=== PATIENT | female | born 2005 | race Caucasian/White ===

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

== ENCOUNTER 2024-05-07 08:45 | Emergency (ER) | payer OTHER ==
[2024-05-07] MEDS: ONDANSETRON 4 MG/2 ML VIAL IVP STA (09:51)
[2024-05-07] MEDS: PANTOPRAZOLE 40 MG/10 ML VIAL IVP STA (09:52)
[2024-05-07] MEDS: SODIUM CHLORIDE 0.9% 1,000 ML IV STA ×2 (09:53→12:11)
--- NOTE | 2024-05-07 09:53 | ED ---
General Adult HPI - General Chief complaint: Nausea/Vomiting/Diarrhea Stated complaint: NVD Time Seen by Provider: 05/07/24 09:05 Source: patient, RN notes reviewed, old records reviewed Mode of arrival: ambulatory Limitations: no limitations - History of Present Illness Initial comments: Patient is a 18-year-old female who presents emergency department complaining of nausea and vomiting. Also has some epigastric abdominal discomfort. Began yesterday and has been having symptoms since. No significant history of marijuana abuse. Does have a history of mild asthma. No other acute complaints at this time. Denies fevers, chills, cough, urinary complaints. Denies any history of abdominal surgeries. Denies any significant shortness of breath or chest pain. States she will occasionally have chest discomfort when she is having active episodes of emesis and points towards the region just above her epigastric space. No other acute complaints at this time. No cardiac history. Relatively healthy otherwise. Presents for further evaluation. No known sick contacts. - Related Data Allergies Allergy/AdvReac Type Severity Reaction Status Date / Time ceftriaxone [From Rocephin] Allergy Rash/Hives Verified 05/07/24 11:27 dog dander Allergy Rash/Hives Verified 05/07/24 11:27 ragweed pollen Allergy Rash/Hives Verified 05/07/24 11:27 rice Allergy Swelling Verified 05/07/24 11:27 tree and shrub pollen Allergy Rash/Hives Verified 05/07/24 11:27 legumes AdvReac Vomiting Verified 05/07/24 11:27 lentils AdvReac Nausea & Verified 05/07/24 11:27 Vomiting triamcinolone [From Azmacort] AdvReac Rash/Hives Verified 05/07/24 11:27 dust Allergy Mild Rash/Hives Uncoded 05/07/24 08:50 Review of Systems ROS Statement: Those systems with pertinent positive or pertinent negative responses have been documented in the HPI. Review of Systems: CONST: Denies fever EYES: Denies blurry vision ENT: Denies nasal congestion C/V: Denies Chest pain RESP: Denies shortness of breath GI: Endorses epigastric abdominal pain, nausea, vomiting. : Denies dysuria SKIN: Denies rash. MSK: Denies joint pain. NEURO: Denies headache ROS Other: All systems not noted in ROS Statement are negative. Past Medical History Past Medical History: Asthma, Pneumonia Additional Past Medical History / Comment(s): chronic migraines, erbs palsy History of Any Multi-Drug Resistant Organisms: None Reported Past Surgical History: No Surgical Hx Reported Past Anesthesia/Blood Transfusion Reactions: No Reported Reaction Past Psychological History: No Psychological Hx Reported Smoking Status: Vaper Past Alcohol Use History: None Reported Past Drug Use History: None Reported - Past Family History Mother Family Medical History: Fibromyalgia Additional Family Medical History / Comment(s): scoliosis, degenerative spine disease, carpal tunnel General Exam - General Exam Comments Initial Comments: General: Appears in no acute distress. HEAD: Normal with no signs of head trauma. EYES: PERRLA, EOMI, conjunctiva normal, no discharge. ENT: Hearing grossly intact, normal oropharynx. Mildly dry mucous membranes. RESPIRATORY: Clear breath sounds bilaterally. No wheezes, rales, or rhonchi. C/V: Regular rate and rhythm. S1 and S2 auscultated, no edema, peripheral pulses 2+ and intact throughout ABD: Abdomen soft, nondistended. Mild tenderness to palpation in the epigastric region. No guarding or rebound tenderness. No peritoneal signs. EXT: no obvious deformity SKIN: No rashes or lesions observed on exposed skin. NEURO: Alert and oriented x 4. Limitations: no limitations Course Vital Signs 05/07/24 05/07/24 05/07/24 08:51 10:00 11:00 Temperature 97.4 F L Pulse Rate 80 59 L 64 Respiratory 18 16 16 Rate Blood Pressure 159/107 151/113 155/104 O2 Sat by Pulse 100 100 100 Oximetry 05/07/24 11:30 Temperature Pulse Rate 60 Respiratory 20 Rate Blood Pressure 153/94 O2 Sat by Pulse 100 Oximetry Medical Decision Making - Medical Decision Making Was pt. sent in by a medical professional or institution (, PA, WORKSHOP MANAGER, urgent care, hospital, or longterm...) When possible be specific @ -No Did you speak to anyone other than the patient for history (EMS, parent, family, police, friend...)? What history was obtained from this source @ -No Did you review nursing and triage notes (agree or disagree)? Why? @ -I reviewed and agree with nursing and triage notes Were old charts reviewed (outside hosp., previous admission, EMS record, old EKG, old radiological studies, urgent care reports/EKG's, longterm records)? Report findings @ -No old charts were reviewed Differential Diagnosis (chest pain, altered mental status, abdominal pain women, abdominal pain men, vaginal bleeding, weakness, fever, dyspnea, syncope, headache, dizziness, GI bleed, back pain, seizure, CVA, palpatations, mental health, musculoskeletal)? @ -Differential Abdominal Pain Women: Appendicitis, Cholecystitis, diverticulosis, ischemic bowel, pancreatitis, hepatitis, UTI, gastroenteritis, AAA, incarcerated hernia, bowel obstruction, constipation, inflammatory bowel, hepatitis, peptic ulcer disease, splenic infarction, perforated viscus, vulvitis, ovarian torsion, PID, kidney stone, placenta abruption, this is not meant to be an all-inclusive list EKG interpreted by me (3pts min.). @ -As above X-rays interpreted by me (1pt min.). @ -Chest x-ray reveals no obvious acute cardiopulmonary process. CT interpreted by me (1pt min.). @ -CT abdomen pelvis reveals no obvious acute intra-abdominal process. U/S interpreted by me (1pt. min.). @ -Gallbladder ultrasound shows no obvious acute process. What testing was considered but not performed or refused? (CT, X-rays, U/S, labs)? Why? @ -None What meds were considered but not given or refused? Why? @ -None Did you discuss the management of the patient with other professionals (professionals i.e. , PA, WORKSHOP MANAGER, lab, RT, psych nurse, social insurance administrator, medication administration professional, teacher, flight communications officer, major case detective)? Give summary @ -No Was smoking cessation discussed for >3mins.? @ -No Was critical care preformed (if so, how long)? @ -No Were there social determinants of health that impacted care today? How? (Homelessness, low income, unemployed, alcoholism, drug addiction, transportation, low edu. Level, literacy, decrease access to med. care, intermediate, rehab)? @ -No Was there de-escalation of care discussed even if they declined (Discuss DNR or withdrawal of care, Hospice)? DNR status @ -No What co-morbidities impacted this encounter? (DM, HTN, Smoking, COPD, CAD, Cancer, CVA, ARF, Chemo, Hep., AIDS, mental health diagnosis, sleep apnea, morbid obesity)? @ -None Was patient admitted / discharged? Hospital course, mention meds given and route , prescriptions, significant lab abnormalities, going to OR and other pertinent info. @ -Patient presents with nausea and vomiting with epigastric abdominal pain and occasional chest discomfort for 1 day. This does seem to be most likely an abdominal process but we will obtain screening EKG as well as chest x-ray. We will obtain basic abdominal labs. Patient be symptomatically treated with IV Toradol, Zofran, Protonix, fluids. Patient was in agreement this plan. Vital signs currently within acceptable limits. Patient's laboratory studies remarkable for dehydration as evidenced by slight lactic acidosis of 2.4. Patient did not leave a urine sample. Patient appears to have pancreatitis based on elevated lipase of 1998. Remainder the workup unremarkable. Imaging unremarkable. At this time patient would like to go home if she is feeling improved. I did recommend CT imaging and she was in agreement this plan. CT imaging showed no obvious acute intra-abdominal process. I updated the patient. I did offer observation admission due to the degree of lipase elevation however patient states she is feeling improved, is not from the area and would like to go home and return to an ER if she is feeling worse. She is tolerating oral intake. I do believe this is reasonable. Strict return precautions discussed. She is given a starter pack of Zofran for home. I instructed the patient to follow up with their PCP in the next 1-3 days. I provided contact information for follow up with gastroenterology. I explained that the patient should return to the emergency department if they experience any worsening symptoms. Strict return precautions were discussed with the patient. The patient expressed understanding of these instructions. I answered all questions that the patient had. The patient was discharged home in fair condition with their prescriptions and follow up information. Undiagnosed new problem with uncertain prognosis? @ -No Drug Therapy requiring intensive monitoring for toxicity (Heparin, Nitro, Insulin, Cardizem)? @ -No Were any procedures done? @ -No Diagnosis/symptom? @ -Pancreatitis, nausea and vomiting Acute, or Chronic, or Acute on Chronic? @ -Acute Uncomplicated (without systemic symptoms) or Complicated (systemic symptoms)? @ -Complicated Side effects of treatment? @ -None Exacerbation, Progression, or Severe Exacerbation] @ -No Poses a threat to life or bodily function? @ -Unlikely at this time - Lab Data Result diagrams: 05/07/24 09:20 05/07/24 09:20 Lab Results 05/07/24 05/07/24 05/07/24 Range/Units 09:20 09:20 09:20 WBC 7.1 (4.0-11.0) k/uL RBC 4.76 (3.80-5.40) m/uL Hgb 14.2 (11.4-16.0) gm/dL Hct 41.7 (34.0-46.0) % MCV 87.6 (80.0-100.0) fL MCH 29.9 (25.0-35.0) pg MCHC 34.1 (31.0-37.0) g/dL RDW 11.5 (11.5-15.5) % Plt Count 423 (150-450) k/uL MPV 6.6 Neutrophils % 73 % Lymphocytes % 16 % Monocytes % 5 % Eosinophils % 5 % Basophils % 0 % Neutrophils # 5.2 (1.3-7.7) k/uL Lymphocytes # 1.2 (1.0-4.8) k/uL Monocytes # 0.3 (0-1.0) k/uL Eosinophils # 0.3 (0-0.7) k/uL Basophils # 0.0 (0-0.2) k/uL PT 11.4 (10.0-12.5) sec INR 1.0 (<1.2) APTT 24.1 (22.0-30.0) sec Sodium 138 (137-145) mmol/L Potassium 3.9 (3.5-5.1) mmol/L Chloride 108 H (98-107) mmol/L Carbon Dioxide 17 L (22-30) mmol/L Anion Gap 13 mmol/L BUN 10 (7-17) mg/dL Creatinine 0.65 (0.52-1.04) mg/dL Est GFR (CKD-EPI)AfAm >90 (>60 ml/min/1.73 sqM) Est GFR (CKD-EPI)NonAf >90 (>60 ml/min/1.73 sqM) Glucose 116 H (74-99) mg/dL Lactic Ac Sepsis Rflx Plasma Lactic Acid Donald (0.7-2.0) mmol/L Calcium 9.6 (8.4-10.2) mg/dL Total Bilirubin 1.2 (0.2-1.3) mg/dL AST 22 (14-36) U/L ALT 14 (4-34) U/L Alkaline Phosphatase 62 (38-126) U/L Total Protein 8.1 (6.3-8.2) g/dL Albumin 4.6 (3.5-5.0) g/dL Amylase 153 H (30-110) U/L Lipase 1998 H (23-300) U/L HCG, Qual Not Detected Influenza Type A (PCR) (Not Detectd) Influenza Type B (PCR) (Not Detectd) RSV (PCR) (Not Detectd) SARS-CoV-2 (PCR) (Not Detectd) 05/07/24 05/07/24 05/07/24 Range/Units 09:20 09:20 10:51 WBC (4.0-11.0) k/uL RBC (3.80-5.40) m/uL Hgb (11.4-16.0) gm/dL Hct (34.0-46.0) % MCV (80.0-100.0) fL MCH (25.0-35.0) pg MCHC (31.0-37.0) g/dL RDW (11.5-15.5) % Plt Count (150-450) k/uL MPV Neutrophils % % Lymphocytes % % Monocytes % % Eosinophils % % Basophils % % Neutrophils # (1.3-7.7) k/uL Lymphocytes # (1.0-4.8) k/uL Monocytes # (0-1.0) k/uL Eosinophils # (0-0.7) k/uL Basophils # (0-0.2) k/uL PT (10.0-12.5) sec INR (<1.2) APTT (22.0-30.0) sec Sodium (137-145) mmol/L Potassium (3.5-5.1) mmol/L Chloride (98-107) mmol/L Carbon Dioxide (22-30) mmol/L Anion Gap mmol/L BUN (7-17) mg/dL Creatinine (0.52-1.04) mg/dL Est GFR (CKD-EPI)AfAm (>60 ml/min/1.73 sqM) Est GFR (CKD-EPI)NonAf (>60 ml/min/1.73 sqM) Glucose (74-99) mg/dL Lactic Ac Sepsis Rflx Y Plasma Lactic Acid Donald 2.4 H* (0.7-2.0) mmol/L Calcium (8.4-10.2) mg/dL Total Bilirubin (0.2-1.3) mg/dL AST (14-36) U/L ALT (4-34) U/L Alkaline Phosphatase (38-126) U/L Total Protein (6.3-8.2) g/dL Albumin (3.5-5.0) g/dL Amylase (30-110) U/L Lipase (23-300) U/L HCG, Qual Influenza Type A (PCR) Not Detected (Not Detectd) Influenza Type B (PCR) Not Detected (Not Detectd) RSV (PCR) Not Detected (Not Detectd) SARS-CoV-2 (PCR) Not Detected (Not Detectd) - EKG Data -: EKG Interpreted by Me EKG Comments: 12-lead Electrocardiogram Interpretation Note EKG was reviewed and interpreted by myself. 12-lead ECG performed at 0946 is interpreted by me as revealing normal sinus rhythm at a rate of 66 beats per minute. [place] is normal. NH interval is 131 ms, QRS durations 81 ms, QTc is 402 ms.. There were no ST or T wave abnormalities to suggest myocardial ischemia or injury. R wave progression across the precordium was satisfactory. By my interpretation this EKG is non-diagnostic for acute ischemia. Disposition Clinical Impression: Pancreatitis Disposition: HOME SELF-CARE Condition: Fair Instructions (If sedation given, give patient instructions): Pancreatitis (ED), Acute Nausea and Vomiting (ED) Additional Instructions: You have pancreatitis of unknown origin. Stick to a clear liquid diet. Use antiemetics as needed. Follow-up with your PCP or return to an ER if symptoms persist or worsen. Is patient prescribed a controlled substance at d/c from ED?: No Referrals: Juanito Peterson MD [Primary Care Provider] - 1-2 days Keren Cleveland MD [STAFF PHYSICIAN] - 1-2 days Time of Disposition: 12:51
[2024-05-07] MEDS: KETOROLAC 15 MG/ML 1 ML VIAL IVP STA (09:55)
[2024-05-07 10:12] LABS: Basophils % (A) 0 %; Eosinophils # (A) 0.3 k/uL (0-0.7); Eosinophils % (A) 5 %; HCT 41.7 % (34.0-46.0); HGB 14.2 gm/dL (11.4-16.0); Lymphocytes # (A) 1.2 k/uL (1.0-4.8); Lymphocytes % (A) 16 %; MCH 29.9 pg (25.0-35.0); MCHC 34.1 g/dL (31.0-37.0); MCV 87.6 fL (80.0-100.0); Mean Platelet Volume 6.6; Monocytes # (A) 0.3 k/uL (0-1.0); Monocytes % (A) 5 %; Neutrophils # (A) 5.2 k/uL (1.3-7.7); Neutrophils % (A) 73 %; Platelet Count 423 k/uL (150-450); RBC 4.76 m/uL (3.80-5.40); RDW 11.5 % (11.5-15.5); WBC 7.1 k/uL (4.0-11.0)
[2024-05-07 10:21] LABS: ALT 14 U/L (4-34); AST 22 U/L (14-36); African American GFR (CKD) >90 (>60 ml/min/1.73 sqM); Albumin 4.6 g/dL (3.5-5.0); Alkaline Phosphatase 62 U/L (38-126); Amylase 153 U/L (30-110); Anion Gap 13 mmol/L; Blood Urea Nitrogen 10 mg/dL (7-17); Calcium 9.6 mg/dL (8.4-10.2); Carbon Dioxide 17 mmol/L (22-30); Chloride 108 mmol/L (98-107); Glucose 116 mg/dL (74-99); Non-African American GFR(CKD) >90 (>60 ml/min/1.73 sqM); Potassium 3.9 mmol/L (3.5-5.1); Sodium 138 mmol/L (137-145); Total Bilirubin 1.2 mg/dL (0.2-1.3); Total Protein 8.1 g/dL (6.3-8.2)
[2024-05-07 10:23] LABS: HCG,Qualitative Serum Not Detected
[2024-05-07 10:35] LABS: Partial Thromboplastin Time 24.1 sec (22.0-30.0); Prothrombin Time 11.4 sec (10.0-12.5)
[2024-05-07] MEDS: diphenhydrAMINE 50 MG/ML 1 ML VIAL IVP STA (10:44)
[2024-05-07] MEDS: HALOPERIDOL LACTATE 5 MG/ML 1 ML VIAL IVP STA (10:45)
[2024-05-07 10:48] LABS: Lipase 1998 U/L (23-300)
--- NOTE | 2024-05-07 10:56 | US ---
EXAMINATION TYPE: US gallbladder DATE OF EXAM: 05/07/2024 COMPARISON: NONE CLINICAL INDICATION: Female, 18 years old with history of abd pain, n/v; abd pain and n/v x 1 day TECHNIQUE: Grayscale and color Doppler imaging of the right upper quadrant was performed. FINDINGS: EXAM MEASUREMENTS: Liver Length: 16.3 cm Gallbladder Wall: 0.17 cm CBD: 0.41 cm Right Kidney: 9.4 x 5.3 x 3.9 cm Pancreas: wnl Liver: wnl Gallbladder: wnl Evidence for sonographic Montes's sign: No CBD: wnl Right Kidney: wnl IMPRESSION: No significant abnormality of the gallbladder, liver, pancreas or right kidney. [facility], , 05/07/2024 10:54 AM
--- NOTE | 2024-05-07 11:22 | XR ---
PA and lateral chest HISTORY: Abdominal pain COMPARISON: 10/10/2016 TECHNIQUE: PA and lateral views the chest were obtained. FINDINGS: The lungs are clear of consolidative, interstitial or masslike opacity. There is no pleural effusion, pleural thickening or pneumothorax. The heart, pulmonary vasculature, mediastinum and elva are within normal limits. The osseous structures and soft tissues of the thorax are intact. IMPRESSION: No significant abnormality. No acute cardiopulmonary disease. . [facility], Workstation: [id number], 05/07/2024 11:20 AM
[2024-05-07] MEDS: NITROFURANTOIN MONOHYD/M-CRYST 100 MG CAP PO STA (11:46)
--- NOTE | 2024-05-07 12:36 | CT ---
EXAMINATION TYPE: CT abdomen pelvis w con CT DLP: 893.5 mGycm, Automated exposure control for dose reduction was used. DATE OF EXAM: 05/07/2024 12:30 PM COMPARISON: Gallbladder ultrasound 05/07/2024 CLINICAL INDICATION:Female, 18 years old with history of pancreatitis; nausea, vomiting TECHNIQUE: Standard CT of the abdomen and pelvis following the administration of 100 cc of Isovue 3 00 IV contrast material. Coronal and sagittal reformats were performed. FINDINGS: LOWER CHEST: Unremarkable ABDOMEN LIVER: Unremarkable GALLBLADDER AND BILE DUCTS: Unremarkable. PANCREAS: Unremarkable. No surrounding fluid collections or fat stranding. Pancreas enhances homogene ously. No pancreatic parenchymal calcifications. SPLEEN: Unremarkable. ADRENAL GLANDS: Unremarkable. KIDNEYS AND URETERS: No evidence of hydronephrosis or renal calculus. Contrast is demonstrated within both collecting systems on delayed phase. PELVIS BLADDER: Unremarkable REPRODUCTIVE: Unremarkable anteverted uterus. Dominant right probable ovarian follicular cyst. ABDOMEN & PELVIS STOMACH AND BOWEL: Stomach and duodenum are unremarkable. No focal bowel wall thickening or surroundi ng inflammatory changes. The appendix is within normal limits. No evidence of bowel obstruction. PERITONEUM: No evidence of pneumoperitoneum or free fluid. VASCULATURE: No evidence of aortic aneurysm. MUSCULOSKELETAL: No acute osseous abnormalities LYMPH NODES: No evidence for lymphadenopathy. SOFT TISSUE/ABDOMINAL WALL: Unremarkable IMPRESSION: No CT evidence for acute abdominal/pelvic process. [facility], , 05/07/2024 12:34 PM
[2024-05-07] MEDS: ONDANSETRON 4 MG ODT STARTER PACK 2 TAB BTL PO STA (13:03)
[2024-05-07 13:12] VITALS: BP 162/93; PULSE 70; RESP 16; TEMP 98.3
== END 2024-05-07 13:15 | disposition home or self-care (01) ==
LOC: EC 08:45
DX: K85.90 Acute pancreatitis without necrosis or infection, unspecified (principal); F17.290 Nicotine dependence, other tobacco product, uncomplicated; Z91.018 Allergy to other foods; Z88.1 Allergy status to other antibiotic agents; Z88.8 Allergy status to other drugs, medicaments and biological substances; Z11.52 Encounter for screening for COVID-19
CPT/HCPCS: 36415; 93005; 80053; 82150; 83605; 83690; 85025; 85610; 85730; 84703; 87636; 71046; 76705; 74177; 99285; 96374; 96375 ×4; 96361; J1200; J1630; J2405; J1885; S0119; Q9967; J2470